=== PATIENT | male | born 1955 | race African-American/Black ===

== ENCOUNTER 2020-10-22 21:53 | Inpatient (IN) ==
[2020-10-23 01:27] LABS: Basophils % 0.3 % (0.0-0.8); Eosinophils # 0.3 10*3/uL (0.0-0.87); Eosinophils % 2.3 % (0.00-10.9); Hematocrit 36.8 VOL% (42.0-52.0); Hemoglobin 11.7 GM/DL (14.0-18.0); Immature Granulocytes % 0.3 %; Immature Granulocytes Absolute 0.04 #; Lymphocytes # 2.2 10*3/uL (1.4-4.0); Lymphocytes % 17.4 % (21.2-54.2); Mean Corpuscular HGB Conc 31.8 GM/DL (32-36); Mean Corpuscular Volume 81.6 FL (87-102); Mean Platelet Volume 11.3 FL (9.6-12.0); Monocytes % 9.4 % (1.7-12.7); Neutrophils % 70.3 % (38.7-73.9); Platelet Count 299 T/CUMM (130-400); Red Blood Count 4.51 MC/CUMM (3.8-5.5); Red Cell Distribution Width 13.7 % (9.3-17.3); White Blood Count 12.4 T/CUMM (4-12)
[2020-10-23 02:01] LABS: Alanine Aminotransferase 20 U/L (16-61); Albumin 2.2 G/DL (3.4-5.0); Alkaline Phosphatase 128 U/L (45-117); Aspartate Amino Transferase 22 U/L (0-37); Bilirubin,Total < 0.39 MG/DL (0.2-1.0); Blood Urea Nitrogen 30 MG/DL (7-18); Calcium 8.1 MG/DL (8.5-10.1); Carbon Dioxide 27 MMOL/L (21-32); Estimated Glom Filtration Rate 47 ML/MIN; Glucose 206 MG/DL (74-106); Osmolality,Calculated 281.1 MOS/KG (273-304); Potassium 4.2 MMOL/L (3.5-5.1); Sodium 135 MMOL/L (136-145); Total Protein 6.6 G/DL (6.4-8.2)
[2020-10-23] MEDS ORDERED: GLUCAGON 1 MG VIAL IM PRN ×2 (03:26→13:18)
[2020-10-23] MEDS ORDERED: ONDANSETRON 4 MG/2 ML VIAL IV PRN (03:26)
[2020-10-23] MEDS ORDERED: DEXTROSE 50% 25 GM/50 ML VIAL IV PRN ×2 (03:26→13:18)
[2020-10-23] MEDS: PIPERACILLIN/TAZOBACTAM 3,375 MG in SODIUM CHLORIDE 0.9% 100 ML IV SCH ×3 (04:21→20:47)
[2020-10-23] MEDS: SODIUM CHLORIDE 0.9% 1,000 ML IV SCH ×2 (04:21→18:01)
[2020-10-23] MEDS: VANCOMYCIN INJ 1,250 MG in SODIUM CHLORIDE 0.9% 250 ML IV SCH ×2 (05:13→23:06)
[2020-10-23 07:59] LABS: Risk Ratio 3.05; VLDL Cholesterol 21.6 MG/DL
[2020-10-23] MEDS: amLODIPine 10 MG TABLET PO SCH ×2 (08:21→09:34)
[2020-10-23] MEDS: INSULIN REGULAR 100 UNIT/ML SUBCUT SCH ×4 (08:28→20:47)
[2020-10-23] MEDS: PANTOPRAZOLE 40 MG TABLET PO SCH (08:57)
[2020-10-23] MEDS ORDERED: LABETALOL 20 MG/4 ML SYRINGE IV PRN (09:19)
[2020-10-23] MEDS ORDERED: LABETALOL 100 MG TABLET PO PRN (09:24)
[2020-10-23] MEDS: hydrALAZINE 20 MG/1 ML VIAL IV PRN ×2 (09:37→16:19)
[2020-10-23] MEDS ORDERED: BUPIVACAINE MPF 0.25% 30 ML VIAL ONE (09:42)
[2020-10-23] MEDS ORDERED: LIDOCAINE 1% 20 ML VIAL ONE (09:42)
[2020-10-23] MEDS ORDERED: SEVOFLURANE 1 UNIT/15 MINUTE INH ONE (10:55)
[2020-10-23] MEDS ORDERED: LIDOCAINE 2% 5 ML VIAL ONE (10:55)
[2020-10-23] MEDS ORDERED: propofoL 200 MG/20 ML VIAL IV ONE (10:55)
[2020-10-23] MEDS ORDERED: fentaNYL 100 MCG/2 ML VIAL ONE (11:00)
[2020-10-23] MEDS ORDERED: ONDANSETRON 4 MG/2 ML VIAL ONE (11:15)
[2020-10-23] MEDS ORDERED: SODIUM CHLORIDE 0.9% 1,000 ML IV ONE (11:18)
[2020-10-23] MEDS ORDERED: PHENYLEPHRINE 1 MG/10 ML SYRINGE IV ONE (11:19)
[2020-10-23] MEDS: ENOXAPARIN 40 MG/0.4 ML SYRINGE SUBCUT SCH (15:57)
[2020-10-23] MEDS: cloNIDine 0.1 MG TABLET PO SCH (20:47)
[2020-10-23] MEDS: ATORVASTATIN 10 MG TABLET PO SCH (20:48)
[2020-10-24] MEDS: PIPERACILLIN/TAZOBACTAM 3,375 MG in SODIUM CHLORIDE 0.9% 100 ML IV SCH ×3 (03:33→22:07)
[2020-10-24 06:02] LABS: Basophils % 0.4 % (0.0-0.8); Eosinophils # 0.1 10*3/uL (0.0-0.87); Eosinophils % 1.1 % (0.00-10.9); Hematocrit 34.4 VOL% (42.0-52.0); Hemoglobin 11.2 GM/DL (14.0-18.0); Immature Granulocytes % 0.3 %; Immature Granulocytes Absolute 0.03 #; Mean Corpuscular HGB Conc 32.6 GM/DL (32-36); Mean Corpuscular Volume 79.8 FL (87-102); Mean Platelet Volume 11.4 FL (9.6-12.0); Neutrophils % 81.2 % (38.7-73.9); Platelet Count 282 T/CUMM (130-400); Red Blood Count 4.31 MC/CUMM (3.8-5.5); Red Cell Distribution Width 13.7 % (9.3-17.3); White Blood Count 11.1 T/CUMM (4-12)
[2020-10-24 06:23] LABS: Albumin 1.6 G/DL (3.4-5.0); Bilirubin,Total 0.4 MG/DL (0.2-1.0); Calcium 7.9 MG/DL (8.5-10.1); Osmolality,Calculated 286.1 MOS/KG (273-304); Potassium 3.5 MMOL/L (3.5-5.1); Total Protein 6.4 G/DL (6.4-8.2)
[2020-10-24] MEDS: INSULIN REGULAR 100 UNIT/ML SUBCUT SCH ×4 (07:26→22:09)
[2020-10-24] MEDS: POTASSIUM CHLORIDE 20 MEQ TABLET PO SCH (08:49)
[2020-10-24] MEDS: PANTOPRAZOLE 40 MG TABLET PO SCH (08:49)
[2020-10-24] MEDS: amLODIPine 10 MG TABLET PO SCH (08:49)
[2020-10-24] MEDS: SODIUM HYPOCHLORITE 0.25% IRRIG 473 ML BOTTLE TOP SCH (14:19)
[2020-10-24] MEDS: ENOXAPARIN 40 MG/0.4 ML SYRINGE SUBCUT SCH (17:19)
[2020-10-24] MEDS: VANCOMYCIN INJ 1,250 MG in SODIUM CHLORIDE 0.9% 250 ML IV SCH (19:15)
[2020-10-24] MEDS: ATORVASTATIN 10 MG TABLET PO SCH (22:11)
[2020-10-24] MEDS: cloNIDine 0.1 MG TABLET PO SCH (22:11)
[2020-10-24] MEDS: ACETAMINOPHEN 325 MG TABLET PO PRN (22:11)
[2020-10-25] MEDS: PIPERACILLIN/TAZOBACTAM 3,375 MG in SODIUM CHLORIDE 0.9% 100 ML IV SCH ×3 (04:18→21:41)
[2020-10-25 06:19] LABS: Amorphous Crystals,Urine Few /HPF (Few); Bilirubin,Urine Negative (Negative); Blood, Urine Small mg/dL (Negative); Glucose,Urine (UA) 150 mg/dL (Negative); Hyaline Casts,Urine 1 /LPF (0-3); Ketones,Urine Negative (Negative); Mucus,Urine Occasional /LPF (Occasional); Nitrite,Urine Negative (Negative); Protein,Urine >=500 MG/DL; RBC,Urine 4 /HPF (0-4); Squamous Epithelial Cell,Urine Occasional /HPF (0-10); Urine Appearance CLOUDY (Clear); Urine Color Yellow (Yellow); Urine Specific Gravity 1.019 (1.001-1.035); Urine Urobilinogen < 2.0 EU/DL (0.2-1.0)
[2020-10-25] MEDS: INSULIN REGULAR 100 UNIT/ML SUBCUT SCH ×4 (08:06→21:51)
[2020-10-25 09:25] LABS: Basophils # 0.1 10*3/uL (0.0-0.2); Basophils % 0.3 % (0.0-0.8); Eosinophils # 0.3 10*3/uL (0.0-0.87); Eosinophils % 2.1 % (0.00-10.9); Hematocrit 34.8 VOL% (42.0-52.0); Hemoglobin 11.5 GM/DL (14.0-18.0); Immature Granulocytes % 0.5 %; Immature Granulocytes Absolute 0.07 #; Lymphocytes # 1.3 10*3/uL (1.4-4.0); Lymphocytes % 9.1 % (21.2-54.2); Mean Corpuscular Volume 79.8 FL (87-102); Monocytes % 7.8 % (1.7-12.7); Neutrophils % 80.2 % (38.7-73.9); Platelet Count 334 T/CUMM (130-400); Red Blood Count 4.36 MC/CUMM (3.8-5.5); Red Cell Distribution Width 13.7 % (9.3-17.3); White Blood Count 14.6 T/CUMM (4-12)
[2020-10-25 09:55] LABS: Calcium 8.1 MG/DL (8.5-10.1); Osmolality,Calculated 281.7 MOS/KG (273-304); Potassium 3.5 MMOL/L (3.5-5.1)
[2020-10-25] MEDS: POTASSIUM CHLORIDE 20 MEQ TABLET PO SCH (09:58)
[2020-10-25] MEDS: amLODIPine 10 MG TABLET PO SCH (09:58)
[2020-10-25] MEDS: PANTOPRAZOLE 40 MG TABLET PO SCH (09:58)
[2020-10-25] MEDS: SODIUM HYPOCHLORITE 0.25% IRRIG 473 ML BOTTLE TOP SCH (13:10)
[2020-10-25] MEDS ORDERED: ENOXAPARIN 40 MG/0.4 ML SYRINGE SUBCUT ONE (13:48)
[2020-10-25] MEDS: lisinopriL 20 MG TABLET PO SCH (14:43)
[2020-10-25] MEDS: hydrALAZINE 20 MG/1 ML VIAL IV PRN (18:58)
[2020-10-25] MEDS ORDERED: ENOXAPARIN 80 MG/0.8 ML SYRINGE SUBCUT SCH (21:00)
[2020-10-25] MEDS: ATORVASTATIN 10 MG TABLET PO SCH (21:41)
[2020-10-25] MEDS: cloNIDine 0.1 MG TABLET PO SCH (21:41)
[2020-10-25] MEDS: SODIUM CHLORIDE 0.9% 1,000 ML IV SCH (23:47)
[2020-10-26 01:08] LABS: Basophils # 0.1 10*3/uL (0.0-0.2); Basophils % 0.4 % (0.0-0.8); Eosinophils # 0.2 10*3/uL (0.0-0.87); Eosinophils % 1.2 % (0.00-10.9); Hematocrit 32.6 VOL% (42.0-52.0); Hemoglobin 10.4 GM/DL (14.0-18.0); Immature Granulocytes % 0.8 %; Immature Granulocytes Absolute 0.11 #; Lymphocytes # 1.5 10*3/uL (1.4-4.0); Lymphocytes % 11.5 % (21.2-54.2); Mean Corpuscular HGB Conc 31.9 GM/DL (32-36); Mean Corpuscular Volume 80.7 FL (87-102); Mean Platelet Volume 10.4 FL (9.6-12.0); Monocytes % 8.3 % (1.7-12.7); Neutrophils % 77.8 % (38.7-73.9); Platelet Count 328 T/CUMM (130-400); Red Blood Count 4.04 MC/CUMM (3.8-5.5); Red Cell Distribution Width 13.8 % (9.3-17.3)
[2020-10-26 01:15] LABS: Calcium 7.8 MG/DL (8.5-10.1); Osmolality,Calculated 279.8 MOS/KG (273-304); Potassium 3.7 MMOL/L (3.5-5.1)
[2020-10-26] MEDS: VANCOMYCIN INJ 1,250 MG in SODIUM CHLORIDE 0.9% 250 ML IV SCH ×2 (03:10→21:09)
[2020-10-26] MEDS: SODIUM CHLORIDE 0.9% 1,000 ML IV SCH (04:50)
[2020-10-26] MEDS: PIPERACILLIN/TAZOBACTAM 3,375 MG in SODIUM CHLORIDE 0.9% 100 ML IV SCH ×3 (05:27→23:41)
[2020-10-26] MEDS: cloNIDine 0.1 MG TABLET PO SCH ×3 (09:20→21:10)
[2020-10-26] MEDS: PANTOPRAZOLE 40 MG TABLET PO SCH (09:20)
[2020-10-26] MEDS: POTASSIUM CHLORIDE 20 MEQ TABLET PO SCH (09:20)
[2020-10-26] MEDS: lisinopriL 20 MG TABLET PO SCH (09:20)
[2020-10-26] MEDS: amLODIPine 10 MG TABLET PO SCH (09:20)
[2020-10-26] MEDS ORDERED: FUROSEMIDE 40 MG/4 ML VIAL IV ONE (14:05)
[2020-10-26] MEDS: INSULIN REGULAR 100 UNIT/ML SUBCUT SCH ×3 (14:54→21:10)
[2020-10-26] MEDS: carvediloL 3.125 MG TABLET PO SCH ×2 (14:55→21:09)
[2020-10-26] MEDS: ENOXAPARIN 40 MG/0.4 ML SYRINGE SUBCUT SCH (14:55)
[2020-10-26] MEDS: ASPIRIN EC 81 MG TABLET PO SCH (14:55)
[2020-10-26] MEDS: SODIUM HYPOCHLORITE 0.25% IRRIG 473 ML BOTTLE TOP SCH (14:55)
[2020-10-26] MEDS: ATORVASTATIN 10 MG TABLET PO SCH (21:10)
[2020-10-27 05:17] LABS: Basophils % 0.4 % (0.0-0.8); Eosinophils # 0.4 10*3/uL (0.0-0.87); Hematocrit 32.6 VOL% (42.0-52.0); Hemoglobin 10.7 GM/DL (14.0-18.0); Immature Granulocytes % 0.5 %; Immature Granulocytes Absolute 0.06 #; Lymphocytes # 1.4 10*3/uL (1.4-4.0); Lymphocytes % 12.5 % (21.2-54.2); Mean Corpuscular HGB Conc 32.8 GM/DL (32-36); Mean Corpuscular Volume 79.7 FL (87-102); Mean Platelet Volume 10.8 FL (9.6-12.0); Monocytes % 8.2 % (1.7-12.7); Neutrophils % 74.4 % (38.7-73.9); Platelet Count 344 T/CUMM (130-400); Red Blood Count 4.09 MC/CUMM (3.8-5.5); Red Cell Distribution Width 13.8 % (9.3-17.3)
[2020-10-27 05:31] LABS: Calcium 8.5 MG/DL (8.5-10.1); Osmolality,Calculated 279.8 MOS/KG (273-304); Potassium 3.6 MMOL/L (3.5-5.1)
[2020-10-27] MEDS: PIPERACILLIN/TAZOBACTAM 3,375 MG in SODIUM CHLORIDE 0.9% 100 ML IV SCH (06:13)
[2020-10-27] MEDS: INSULIN REGULAR 100 UNIT/ML SUBCUT SCH ×4 (09:18→21:28)
[2020-10-27] MEDS: PANTOPRAZOLE 40 MG TABLET PO SCH (09:18)
[2020-10-27] MEDS: ENOXAPARIN 40 MG/0.4 ML SYRINGE SUBCUT SCH (09:18)
[2020-10-27] MEDS: lisinopriL 20 MG TABLET PO SCH (09:19)
[2020-10-27] MEDS: POTASSIUM CHLORIDE 20 MEQ TABLET PO SCH (09:19)
[2020-10-27] MEDS: cloNIDine 0.1 MG TABLET PO SCH ×2 (09:19→21:30)
[2020-10-27] MEDS: carvediloL 3.125 MG TABLET PO SCH ×2 (09:19→21:30)
[2020-10-27] MEDS: ASPIRIN EC 81 MG TABLET PO SCH (09:19)
[2020-10-27] MEDS: ACETAMINOPHEN 325 MG TABLET PO PRN (09:19)
[2020-10-27] MEDS: amLODIPine 10 MG TABLET PO SCH (09:20)
[2020-10-27] MEDS: SODIUM HYPOCHLORITE 0.25% IRRIG 473 ML BOTTLE TOP SCH (09:49)
[2020-10-27] MEDS ORDERED: AZITHROMYCIN INJ 250 MG in SODIUM CHLORIDE 0.9% 250 ML IV SCH (10:00)
[2020-10-27] MEDS: cefTRIAXone 1,000 MG in SODIUM CHLORIDE 0.9% 100 ML IV SCH (10:37)
[2020-10-27] MEDS: AZITHROMYCIN INJ 500 MG in SODIUM CHLORIDE 0.9% 250 ML IV SCH (11:18)
[2020-10-27] MEDS: FUROSEMIDE 20 MG/2 ML VIAL IV SCH (15:43)
[2020-10-27] MEDS: ATORVASTATIN 10 MG TABLET PO SCH (21:30)
[2020-10-28 05:33] LABS: Basophils % 0.4 % (0.0-0.8); Eosinophils # 0.4 10*3/uL (0.0-0.87); Hematocrit 31.1 VOL% (42.0-52.0); Hemoglobin 9.9 GM/DL (14.0-18.0); Immature Granulocytes % 0.7 %; Immature Granulocytes Absolute 0.07 #; Lymphocytes # 1.3 10*3/uL (1.4-4.0); Lymphocytes % 12.2 % (21.2-54.2); Mean Corpuscular HGB Conc 31.8 GM/DL (32-36); Mean Corpuscular Volume 80.8 FL (87-102); Mean Platelet Volume 10.9 FL (9.6-12.0); Monocytes % 9.8 % (1.7-12.7); Neutrophils % 72.9 % (38.7-73.9); Platelet Count 353 T/CUMM (130-400); Red Blood Count 3.85 MC/CUMM (3.8-5.5); Red Cell Distribution Width 13.8 % (9.3-17.3); White Blood Count 10.6 T/CUMM (4-12)
[2020-10-28 05:51] LABS: Calcium 8.2 MG/DL (8.5-10.1); Osmolality,Calculated 284.3 MOS/KG (273-304); Potassium 3.3 MMOL/L (3.5-5.1)
[2020-10-28] MEDS: INSULIN REGULAR 100 UNIT/ML SUBCUT SCH ×2 (07:30→11:09)
[2020-10-28] MEDS: POTASSIUM CHLORIDE 20 MEQ TABLET PO SCH ×2 (08:29→09:53)
[2020-10-28] MEDS: cloNIDine 0.1 MG TABLET PO SCH ×2 (08:29→09:53)
[2020-10-28] MEDS: PANTOPRAZOLE 40 MG TABLET PO SCH ×2 (08:29→09:53)
[2020-10-28] MEDS: lisinopriL 20 MG TABLET PO SCH ×2 (08:30→09:53)
[2020-10-28] MEDS: carvediloL 3.125 MG TABLET PO SCH ×2 (08:30→09:53)
[2020-10-28] MEDS: FUROSEMIDE 20 MG/2 ML VIAL IV SCH ×2 (08:30→09:52)
[2020-10-28] MEDS: amLODIPine 10 MG TABLET PO SCH ×2 (08:30→09:53)
[2020-10-28] MEDS: ASPIRIN EC 81 MG TABLET PO SCH ×2 (08:30→09:52)
[2020-10-28] MEDS: ENOXAPARIN 40 MG/0.4 ML SYRINGE SUBCUT SCH ×2 (08:31→09:53)
[2020-10-28] MEDS: SODIUM HYPOCHLORITE 0.25% IRRIG 473 ML BOTTLE TOP SCH (08:31)
[2020-10-28] MEDS ORDERED: COLLAGENASE OINT 30 GM TUBE TOP SCH (09:00)
[2020-10-28] MEDS ORDERED: SULFAMETHOX/TRIMETHOPRIM 800-160 MG TABLET PO SCH (09:00)
[2020-10-28] MEDS: cefTRIAXone 1,000 MG in SODIUM CHLORIDE 0.9% 100 ML IV SCH (10:15)
[2020-10-28] MEDS: AZITHROMYCIN INJ 500 MG in SODIUM CHLORIDE 0.9% 250 ML IV SCH (10:16)
[2020-10-28 13:34] VITALS: BP 184/80
== END 2020-10-28 14:13 | disposition home health service (06) | DRG 981 ==
LOC: N.ED 21:53 → N.EDINP 21:53 → OBSVTOIN 10-23 03:26 → SUATTDRO 10-23 03:26 → N.EDINP 10-23 09:46 → N.3E 10-23 09:58
PROVIDERS: ADMIT Internal Medicine; ATTEND Internal Medicine

== ENCOUNTER 2020-11-06 10:44 | Inpatient (IN) ==
[~2020-11-06 10:44] MED LIST: ASPIRIN 325 MG TABLET PO ONE; DIAZEPAM 5 MG TABLET PO ONE; MAGNESIUM SULF RIDER 2 GM/50 ML PREMIX IV PRN; POTASSIUM CHLORIDE RIDER 10 MEQ/100 ML PREMIX IV PRN; diphenhydrAMINE CAP 50 MG CAPSULE PO ONE
[2020-11-06 11:43] LABS: Basophils # 0.1 10*3/uL (0.0-0.2); Basophils % 0.7 % (0.0-0.8); Eosinophils # 0.4 10*3/uL (0.0-0.87); Eosinophils % 3.3 % (0.00-10.9); Hemoglobin 11.2 GM/DL (14.0-18.0); Immature Granulocytes % 0.9 %; Lymphocytes # 1.5 10*3/uL (1.4-4.0); Mean Corpuscular Volume 80.8 FL (87-102); Mean Platelet Volume 10.1 FL (9.6-12.0); Monocytes % 7.2 % (1.7-12.7); Neutrophils % 74.9 % (38.7-73.9); Platelet Count 514 T/CUMM (130-400); Red Blood Count 4.33 MC/CUMM (3.8-5.5); Red Cell Distribution Width 14.6 % (9.3-17.3); White Blood Count 11.7 T/CUMM (4-12)
[2020-11-06 11:51] LABS: PT Patient Result 11.4 SECS (10.5-12.0)
[2020-11-06 12:05] LABS: Albumin 2.4 G/DL (3.4-5.0); Bilirubin,Total 0.4 MG/DL (0.2-1.0); Calcium 9.4 MG/DL (8.5-10.1); Osmolality,Calculated 280.7 MOS/KG (273-304); Potassium 4.4 MMOL/L (3.5-5.1); Total Protein 8.3 G/DL (6.4-8.2)
[2020-11-06] MEDS ORDERED: ASPIRIN 325 MG TABLET ONE (12:05)
[2020-11-06] MEDS ORDERED: DIAZEPAM 5 MG TABLET ONE (12:05)
[2020-11-06] MEDS ORDERED: diphenhydrAMINE CAP 50 MG CAPSULE ONE (12:05)
[2020-11-06] MEDS: SODIUM CHLORIDE 0.9% 1,000 ML IV SCH ×2 (12:10→23:05)
[2020-11-06] MEDS ORDERED: LIDOCAINE 1% 20 ML VIAL ONE (12:24)
[2020-11-06] MEDS ORDERED: MIDAZOLAM 2 MG/2 ML VIAL ONE (12:43)
[2020-11-06] MEDS ORDERED: HYDROmorphone 2 MG/1 ML VIAL ONE (12:43)
[2020-11-06] MEDS ORDERED: HEPARIN 5,000 UNIT/1 ML VIAL ONE ×3 (13:08→15:32)
[2020-11-06] MEDS ORDERED: NITROGLYCERIN DRIP 50 MG/250 ML BOTTLE IV ONE (13:26)
[2020-11-06] MEDS ORDERED: VERAPAMIL 5 MG/2 ML VIAL ONE (13:26)
[2020-11-06] MEDS ORDERED: TIROFIBAN 5,000 MCG/100 ML PREMIX IV ONE (14:31)
[2020-11-06] MEDS ORDERED: ALTEPLASE 2 MG VIAL ONE ×2 (15:25→15:43)
[2020-11-06] MEDS ORDERED: LORazepam 2 MG/1 ML VIAL IV PRN (16:13)
[2020-11-06] MEDS ORDERED: ONDANSETRON 4 MG/2 ML VIAL IV PRN (16:13)
[2020-11-06] MEDS ORDERED: ALTEPLASE IV SCH (16:30)
[2020-11-06] MEDS ORDERED: SODIUM CHLORIDE 0.9% IV SCH (16:30)
[2020-11-06] MEDS ORDERED: HEPARIN DRIP 25,000 UNITS/500 ML PREMIX IV SCH (16:30)
[2020-11-06] MEDS: NITROGLYCERIN DRIP 50 MG/250 ML BOTTLE IV PRN (16:30)
[2020-11-06] MEDS ORDERED: LABETALOL 200 MG TABLET PO ONE (17:30)
[2020-11-06 18:33] LABS: INR 1.1; PT Patient Result 11.8 SECS (10.5-12.0); Partial Thromboplastin Time 31.3 SECS (23.9-33.8)
[2020-11-06] MEDS: LABETALOL 100 MG TABLET PO SCH (21:07)
[2020-11-06] MEDS: ATORVASTATIN 10 MG TABLET PO SCH (21:07)
[2020-11-06] MEDS: SULFAMETHOX/TRIMETHOPRIM 800-160 MG TABLET PO SCH (21:07)
[2020-11-07 03:45] LABS: Basophils # 0.1 10*3/uL (0.0-0.2); Basophils % 0.6 % (0.0-0.8); Eosinophils # 0.5 10*3/uL (0.0-0.87); Eosinophils % 5.2 % (0.00-10.9); Hematocrit 29.3 VOL% (42.0-52.0); Hemoglobin 9.4 GM/DL (14.0-18.0); Immature Granulocytes % 0.3 %; Immature Granulocytes Absolute 0.03 #; Lymphocytes # 1.4 10*3/uL (1.4-4.0); Lymphocytes % 16.3 % (21.2-54.2); Mean Corpuscular HGB Conc 32.1 GM/DL (32-36); Mean Corpuscular Volume 80.7 FL (87-102); Mean Platelet Volume 9.9 FL (9.6-12.0); Monocytes % 8.5 % (1.7-12.7); Neutrophils % 69.1 % (38.7-73.9); Platelet Count 453 T/CUMM (130-400); Red Blood Count 3.63 MC/CUMM (3.8-5.5); Red Cell Distribution Width 14.5 % (9.3-17.3); White Blood Count 8.7 T/CUMM (4-12)
[2020-11-07 03:55] LABS: Calcium 8.5 MG/DL (8.5-10.1); Osmolality,Calculated 280.4 MOS/KG (273-304); Potassium 4.5 MMOL/L (3.5-5.1)
[2020-11-07 04:31] LABS: INR 1.1; PT Patient Result 11.9 SECS (10.5-12.0)
[2020-11-07 04:40] LABS: Partial Thromboplastin Time 44.4 SECS (23.9-33.8)
[2020-11-07] MEDS: SODIUM CHLORIDE 0.9% 1,000 ML IV SCH ×3 (05:51→19:07)
[2020-11-07] MEDS: NITROGLYCERIN DRIP 50 MG/250 ML BOTTLE IV PRN (06:16)
[2020-11-07] MEDS ORDERED: PHENOL 1.4% THROAT SPRAY 177 ML BOTTLE PO PRN (07:59)
[2020-11-07] MEDS ORDERED: DEXTROSE 50% 25 GM/50 ML VIAL IV ONE (08:12)
[2020-11-07] MEDS: DEXTROSE 50% 25 GM/50 ML VIAL IV PRN ×2 (08:15→18:08)
[2020-11-07] MEDS: LABETALOL 100 MG TABLET PO SCH ×2 (08:28→20:37)
[2020-11-07] MEDS: SULFAMETHOX/TRIMETHOPRIM 800-160 MG TABLET PO SCH ×2 (08:28→20:39)
[2020-11-07] MEDS: amLODIPine 5 MG TABLET PO SCH (08:29)
[2020-11-07] MEDS: INSULIN GLARGINE 100 UNIT/ML SUBCUT SCH (08:46)
[2020-11-07] MEDS ORDERED: MIDAZOLAM 2 MG/2 ML VIAL ONE (10:19)
[2020-11-07] MEDS ORDERED: HYDROmorphone 2 MG/1 ML VIAL ONE (10:19)
[2020-11-07] MEDS ORDERED: HEPARIN 5,000 UNIT/1 ML VIAL ONE (10:35)
[2020-11-07] MEDS ORDERED: TICAGRELOR 90 MG TABLET ONE (11:45)
[2020-11-07] MEDS ORDERED: ASPIRIN 325 MG TABLET ONE (11:45)
[2020-11-07] MEDS ORDERED: NITROGLYCERIN SL 0.4 MG TABLET SL PRN (11:46)
[2020-11-07] MEDS ORDERED: ZALEPLON 5 MG CAPSULE PO PRN (11:46)
[2020-11-07] MEDS ORDERED: RIVAROXABAN 2.5 MG TABLET PO ONE (12:06)
[2020-11-07] MEDS ORDERED: hydrALAZINE 20 MG/1 ML VIAL IV ONE (12:25)
[2020-11-07] MEDS: ISOSORBIDE DINITRATE 20 MG TABLET PO SCH ×2 (14:55→20:39)
[2020-11-07] MEDS: hydrALAZINE 20 MG/1 ML VIAL IV PRN ×2 (16:27→19:28)
[2020-11-07] MEDS: ATORVASTATIN 10 MG TABLET PO SCH (20:38)
[2020-11-07] MEDS: RIVAROXABAN 2.5 MG TABLET PO SCH (20:38)
[2020-11-07] MEDS: TICAGRELOR 90 MG TABLET PO SCH (20:38)
[2020-11-08 03:48] LABS: Basophils # 0.1 10*3/uL (0.0-0.2); Basophils % 0.6 % (0.0-0.8); Eosinophils # 0.4 10*3/uL (0.0-0.87); Eosinophils % 3.8 % (0.00-10.9); Hematocrit 29.9 VOL% (42.0-52.0); Hemoglobin 9.6 GM/DL (14.0-18.0); Immature Granulocytes % 0.3 %; Immature Granulocytes Absolute 0.03 #; Lymphocytes # 1.1 10*3/uL (1.4-4.0); Lymphocytes % 10.3 % (21.2-54.2); Mean Corpuscular HGB Conc 32.1 GM/DL (32-36); Mean Corpuscular Volume 80.8 FL (87-102); Mean Platelet Volume 9.8 FL (9.6-12.0); Monocytes % 7.2 % (1.7-12.7); Neutrophils % 77.8 % (38.7-73.9); Platelet Count 461 T/CUMM (130-400); Red Cell Distribution Width 14.4 % (9.3-17.3); White Blood Count 10.4 T/CUMM (4-12)
[2020-11-08 04:02] LABS: Calcium 8.5 MG/DL (8.5-10.1); Osmolality,Calculated 279.3 MOS/KG (273-304); Potassium 4.2 MMOL/L (3.5-5.1)
[2020-11-08 04:05] LABS: Partial Thromboplastin Time 31.6 SECS (23.9-33.8)
[2020-11-08] MEDS: hydrALAZINE 20 MG/1 ML VIAL IV PRN (04:27)
[2020-11-08] MEDS: DEXTROSE 50% 25 GM/50 ML VIAL IV PRN (04:33)
[2020-11-08] MEDS: SODIUM CHLORIDE 0.9% 1,000 ML IV SCH ×2 (05:13→16:03)
[2020-11-08] MEDS: INSULIN GLARGINE 100 UNIT/ML SUBCUT SCH (09:29)
[2020-11-08] MEDS: RIVAROXABAN 2.5 MG TABLET PO SCH ×2 (09:29→21:16)
[2020-11-08] MEDS: LABETALOL 100 MG TABLET PO SCH ×2 (09:30→21:15)
[2020-11-08] MEDS: ASPIRIN EC 81 MG TABLET PO SCH (09:30)
[2020-11-08] MEDS: ISOSORBIDE DINITRATE 20 MG TABLET PO SCH ×3 (09:30→21:16)
[2020-11-08] MEDS: TICAGRELOR 90 MG TABLET PO SCH ×2 (09:30→21:16)
[2020-11-08] MEDS: amLODIPine 5 MG TABLET PO SCH (09:30)
[2020-11-08] MEDS: SULFAMETHOX/TRIMETHOPRIM 800-160 MG TABLET PO SCH ×2 (09:30→21:16)
[2020-11-08 16:10] LABS: Partial Thromboplastin Time 32.5 SECS (23.9-33.8)
[2020-11-08] MEDS: ATORVASTATIN 10 MG TABLET PO SCH (21:16)
[2020-11-09] MEDS: SODIUM CHLORIDE 0.9% 1,000 ML IV SCH ×3 (01:57→22:15)
[2020-11-09 05:44] LABS: Basophils % 0.2 % (0.0-0.8); Eosinophils # 0.3 10*3/uL (0.0-0.87); Eosinophils % 3.3 % (0.00-10.9); Hematocrit 24.3 VOL% (42.0-52.0); Hemoglobin 7.9 GM/DL (14.0-18.0); Immature Granulocytes % 0.4 %; Immature Granulocytes Absolute 0.03 #; Lymphocytes # 1.2 10*3/uL (1.4-4.0); Lymphocytes % 14.6 % (21.2-54.2); Mean Corpuscular HGB Conc 32.5 GM/DL (32-36); Mean Platelet Volume 10.2 FL (9.6-12.0); Monocytes % 8.5 % (1.7-12.7); Platelet Count 388 T/CUMM (130-400); Red Cell Distribution Width 14.6 % (9.3-17.3); White Blood Count 8.2 T/CUMM (4-12)
[2020-11-09 06:08] LABS: Calcium 8.2 MG/DL (8.5-10.1); Osmolality,Calculated 284.4 MOS/KG (273-304); Potassium 4.2 MMOL/L (3.5-5.1)
[2020-11-09] MEDS: ASPIRIN EC 81 MG TABLET PO SCH (08:23)
[2020-11-09] MEDS: amLODIPine 5 MG TABLET PO SCH (08:23)
[2020-11-09] MEDS: TICAGRELOR 90 MG TABLET PO SCH ×2 (08:24→21:41)
[2020-11-09] MEDS: RIVAROXABAN 2.5 MG TABLET PO SCH ×2 (08:24→21:41)
[2020-11-09] MEDS: SULFAMETHOX/TRIMETHOPRIM 800-160 MG TABLET PO SCH ×2 (08:24→21:41)
[2020-11-09] MEDS: ISOSORBIDE DINITRATE 20 MG TABLET PO SCH ×3 (08:24→21:41)
[2020-11-09] MEDS: LABETALOL 100 MG TABLET PO SCH ×2 (08:25→21:43)
[2020-11-09] MEDS: INSULIN GLARGINE 100 UNIT/ML SUBCUT SCH (08:28)
[2020-11-09] MEDS ORDERED: SODIUM CHLORIDE 0.9% 1,000 ML IV PRN (10:28)
[2020-11-09] MEDS ORDERED: FUROSEMIDE 40 MG/4 ML VIAL IV PRN (10:29)
[2020-11-09] MEDS: ATORVASTATIN 10 MG TABLET PO SCH (21:41)
[2020-11-10 06:12] LABS: Basophils % 0.2 % (0.0-0.8); Eosinophils # 0.4 10*3/uL (0.0-0.87); Eosinophils % 5.1 % (0.00-10.9); Hematocrit 27.7 VOL% (42.0-52.0); Immature Granulocytes % 0.2 %; Immature Granulocytes Absolute 0.02 #; Lymphocytes # 1.3 10*3/uL (1.4-4.0); Lymphocytes % 16.1 % (21.2-54.2); Mean Corpuscular HGB Conc 32.5 GM/DL (32-36); Mean Corpuscular Volume 81.2 FL (87-102); Mean Platelet Volume 10.3 FL (9.6-12.0); Monocytes % 8.3 % (1.7-12.7); Neutrophils % 70.1 % (38.7-73.9); Platelet Count 375 T/CUMM (130-400); Red Blood Count 3.41 MC/CUMM (3.8-5.5); Red Cell Distribution Width 14.7 % (9.3-17.3); White Blood Count 8.2 T/CUMM (4-12)
[2020-11-10] MEDS: SODIUM CHLORIDE 0.9% 1,000 ML IV SCH ×2 (06:33→15:37)
[2020-11-10 07:04] LABS: Calcium 8.3 MG/DL (8.5-10.1); Osmolality,Calculated 284.1 MOS/KG (273-304); Potassium 4.2 MMOL/L (3.5-5.1)
[2020-11-10] MEDS: SULFAMETHOX/TRIMETHOPRIM 800-160 MG TABLET PO SCH (10:06)
[2020-11-10] MEDS: ASPIRIN EC 81 MG TABLET PO SCH (10:06)
[2020-11-10] MEDS: RIVAROXABAN 2.5 MG TABLET PO SCH ×2 (10:07→22:11)
[2020-11-10] MEDS: TICAGRELOR 90 MG TABLET PO SCH (10:07)
[2020-11-10] MEDS: amLODIPine 5 MG TABLET PO SCH (10:07)
[2020-11-10] MEDS: ISOSORBIDE DINITRATE 20 MG TABLET PO SCH ×3 (10:07→22:11)
[2020-11-10] MEDS: LABETALOL 100 MG TABLET PO SCH (10:07)
[2020-11-10] MEDS: INSULIN GLARGINE 100 UNIT/ML SUBCUT SCH (10:08)
[2020-11-10] MEDS: INSULIN LISPRO 100 UNIT/ML SUBCUT SCH ×3 (12:15→22:55)
[2020-11-10] MEDS ORDERED: GLUCAGON 1 MG VIAL IM PRN (12:18)
[2020-11-10] MEDS ORDERED: INSULIN LISPRO 100 UNIT/ML ONE (13:19)
[2020-11-10] MEDS ORDERED: CLOPIDOGREL 75 MG TABLET PO ONE (16:43)
[2020-11-10] MEDS: SKIN HEALING OINT (AQUAPHOR) 50 GM TUBE TOP SCH (17:52)
[2020-11-10] MEDS ORDERED: LABETALOL 100 MG TABLET PO SCH (21:00)
[2020-11-10] MEDS ORDERED: cloNIDine 0.1 MG TABLET PO SCH (21:00)
[2020-11-10] MEDS: ATORVASTATIN 40 MG TABLET PO SCH (22:10)
[2020-11-11] MEDS: SODIUM CHLORIDE 0.9% 1,000 ML IV SCH ×2 (02:36→09:14)
[2020-11-11 06:48] LABS: Basophils % 0.4 % (0.0-0.8); Eosinophils # 0.2 10*3/uL (0.0-0.87); Eosinophils % 4.5 % (0.00-10.9); Hematocrit 47.5 VOL% (42.0-52.0); Hemoglobin 15.6 GM/DL (14.0-18.0); Immature Granulocytes % 0.2 %; Immature Granulocytes Absolute 0.01 #; Lymphocytes # 0.5 10*3/uL (1.4-4.0); Lymphocytes % 10.9 % (21.2-54.2); Mean Corpuscular HGB Conc 32.8 GM/DL (32-36); Monocytes % 6.6 % (1.7-12.7); Neutrophils % 77.4 % (38.7-73.9); Platelet Count 262 T/CUMM (130-400); Red Blood Count 5.94 MC/CUMM (3.8-5.5); Red Cell Distribution Width 14.9 % (9.3-17.3); White Blood Count 4.7 T/CUMM (4-12)
[2020-11-11 06:58] LABS: Calcium 8.3 MG/DL (8.5-10.1); Osmolality,Calculated 281.3 MOS/KG (273-304); Potassium 3.9 MMOL/L (3.5-5.1)
[2020-11-11] MEDS: INSULIN LISPRO 100 UNIT/ML SUBCUT SCH ×4 (07:30→21:20)
[2020-11-11] MEDS: SKIN HEALING OINT (AQUAPHOR) 50 GM TUBE TOP SCH (09:00)
[2020-11-11] MEDS: ISOSORBIDE DINITRATE 20 MG TABLET PO SCH ×3 (10:48→21:21)
[2020-11-11] MEDS: CLOPIDOGREL 75 MG TABLET PO SCH (10:48)
[2020-11-11] MEDS: ASPIRIN EC 81 MG TABLET PO SCH (10:48)
[2020-11-11] MEDS: amLODIPine 5 MG TABLET PO SCH (10:49)
[2020-11-11] MEDS: INSULIN GLARGINE 100 UNIT/ML SUBCUT SCH (10:50)
[2020-11-11] MEDS: GLIMEPIRIDE 4 MG TABLET PO SCH (16:40)
[2020-11-11] MEDS: ATORVASTATIN 40 MG TABLET PO SCH (21:21)
[2020-11-12] MEDS: DEXTROSE 50% 25 GM/50 ML VIAL IV PRN (00:59)
[2020-11-12] MEDS ORDERED: DEXAMETHASONE 4 MG/1 ML VIAL ONE (06:38)
[2020-11-12] MEDS ORDERED: DEXMEDETOMIDINE 200 MCG/2 ML VIAL ONE (06:38)
[2020-11-12] MEDS ORDERED: ONDANSETRON 4 MG/2 ML VIAL ONE (06:38)
[2020-11-12] MEDS ORDERED: propofoL 200 MG/20 ML VIAL IV ONE (06:38)
[2020-11-12] MEDS ORDERED: MIDAZOLAM 2 MG/2 ML VIAL ONE (06:38)
[2020-11-12] MEDS ORDERED: fentaNYL 100 MCG/2 ML VIAL ONE (06:38)
[2020-11-12] MEDS ORDERED: LIDOCAINE 2% 5 ML VIAL ONE (06:38)
[2020-11-12] MEDS ORDERED: LACTATED RINGERS 1,000 ML IV SCH (07:00)
[2020-11-12] MEDS ORDERED: DEXTROSE 50% 25 GM/50 ML VIAL IV ONE (07:07)
[2020-11-12] MEDS ORDERED: KETAMINE 500 MG/10 ML VIAL ONE (07:39)
[2020-11-12] MEDS ORDERED: SODIUM CHLORIDE 0.9% 100 ML IV ONE (07:42)
[2020-11-12] MEDS ORDERED: GLYCOPYRROLATE 0.4 MG/2 ML VIAL ONE (07:49)
[2020-11-12] MEDS ORDERED: ETOMIDATE 40 MG/20 ML VIAL IV ONE (07:50)
[2020-11-12] MEDS: INSULIN LISPRO 100 UNIT/ML SUBCUT SCH ×3 (10:01→17:28)
[2020-11-12] MEDS: GLIMEPIRIDE 4 MG TABLET PO SCH (10:02)
[2020-11-12] MEDS: ASPIRIN EC 81 MG TABLET PO SCH (10:02)
[2020-11-12] MEDS: INSULIN GLARGINE 100 UNIT/ML SUBCUT SCH (10:03)
[2020-11-12] MEDS: ISOSORBIDE DINITRATE 20 MG TABLET PO SCH ×2 (10:03→15:47)
[2020-11-12] MEDS: CLOPIDOGREL 75 MG TABLET PO SCH (10:03)
[2020-11-12] MEDS: SKIN HEALING OINT (AQUAPHOR) 50 GM TUBE TOP SCH (13:23)
[2020-11-12 13:38] LABS: Calcium 8.7 MG/DL (8.5-10.1); Osmolality,Calculated 276.8 MOS/KG (273-304); Potassium 4.5 MMOL/L (3.5-5.1)
[2020-11-12 16:39] VITALS: BP 175/76
[2020-11-13] MEDS ORDERED: GLIMEPIRIDE 2 MG TABLET PO SCH (08:00)
== END 2020-11-12 17:50 | disposition home or self-care (01) | DRG 271 ==
LOC: N.CL 10:44 → N.CC 16:13 → N.TELEN 11-08 13:58
PROVIDERS: ADMIT Internal Medicine Cardiovascular Disease; ATTEND Internal Medicine Cardiovascular Disease

== ENCOUNTER 2022-05-31 11:14 | Observation (INO) ==
[2022-05-31] MEDS ORDERED: ASPIRIN 325 MG TABLET PO ONE (11:19)
[2022-05-31] MEDS ORDERED: DIAZEPAM 5 MG TABLET PO ONE (11:19)
[2022-05-31] MEDS ORDERED: MAGNESIUM SULF RIDER 2 GM/50 ML PREMIX IV PRN (11:19)
[2022-05-31] MEDS ORDERED: diphenhydrAMINE CAP 50 MG CAPSULE PO ONE (11:19)
[2022-05-31] MEDS ORDERED: POTASSIUM CHLORIDE RIDER 10 MEQ/100 ML PREMIX IV PRN (11:19)
[2022-05-31 11:56] LABS: Basophils % 0.3 % (0.0-0.8); Eosinophils # 0.1 10*3/uL (0.0-0.87); Eosinophils % 0.9 % (0.00-10.9); Hematocrit 37.8 VOL% (42.0-52.0); Immature Granulocytes % 0.4 %; Immature Granulocytes Absolute 0.06 #; Lymphocytes # 1.4 10*3/uL (1.4-4.0); Lymphocytes % 9.4 % (21.2-54.2); Mean Corpuscular HGB Conc 31.7 GM/DL (32-36); Mean Corpuscular Volume 81.8 FL (87-102); Mean Platelet Volume 11.1 FL (9.6-12.0); Monocytes # 0.8 10*3/uL (0.11-0.8); Monocytes % 5.8 % (1.7-12.7); Neutrophils % 83.2 % (38.7-73.9); Platelet Count 279 T/CUMM (130-400); Red Blood Count 4.62 MC/CUMM (3.8-5.5); Red Cell Distribution Width 14.1 % (9.3-17.3); White Blood Count 14.5 T/CUMM (4-12)
[2022-05-31] MEDS ORDERED: diphenhydrAMINE CAP 50 MG CAPSULE ONE (12:01)
[2022-05-31] MEDS ORDERED: ASPIRIN 325 MG TABLET ONE (12:01)
[2022-05-31] MEDS ORDERED: DIAZEPAM 5 MG TABLET ONE (12:01)
[2022-05-31] MEDS: SODIUM CHLORIDE 0.9% 1,000 ML IV SCH (12:03)
[2022-05-31 12:07] LABS: PT Patient Result 10.9 SECS (10.1-12.1)
[2022-05-31 12:14] LABS: Alanine Aminotransferase 18 U/L (16-61); Albumin 2.5 G/DL (3.4-5.0); Alkaline Phosphatase 163 U/L (45-117); Aspartate Amino Transferase 19 U/L (0-37); Bilirubin,Total < 0.39 MG/DL (0.20-1.00); Blood Urea Nitrogen 64 MG/DL (7-18); Calcium 8.6 MG/DL (8.5-10.1); Carbon Dioxide 22 MMOL/L (21-32); Chloride 106 MMOL/L (98-107); Glucose 203 MG/DL (74-106); Osmolality,Calculated 298.7 MOS/KG (273-304); Potassium 4.1 MMOL/L (3.5-5.1); Sodium 138 MMOL/L (136-145); Total Protein 8.4 G/DL (6.4-8.2)
[2022-05-31] MEDS ORDERED: MIDAZOLAM 2 MG/2 ML VIAL ONE (12:36)
[2022-05-31] MEDS ORDERED: HYDROmorphone 1 MG/1 ML SYRINGE ONE (12:36)
[2022-05-31] MEDS ORDERED: HEPARIN 5,000 UNIT/1 ML VIAL ONE ×2 (13:14→13:30)
[2022-05-31] MEDS ORDERED: TIROFIBAN 5,000 MCG/100 ML PREMIX IV ONE (13:58)
[2022-05-31] MEDS ORDERED: LABETALOL 20 MG/4 ML SYRINGE IV ONE (14:35)
[2022-05-31] MEDS ORDERED: CLOPIDOGREL 300 MG TABLET ONE (14:44)
[2022-05-31] MEDS ORDERED: GLUCAGON 1 MG VIAL IM PRN (14:51)
[2022-05-31] MEDS ORDERED: DEXTROSE 50% 25 GM/50 ML VIAL IV PRN (14:51)
[2022-06-01] MEDS: SODIUM CHLORIDE 0.9% 1,000 ML IV SCH ×3 (04:20→22:20)
[2022-06-01 05:56] LABS: Basophils # 0.1 10*3/uL (0.0-0.2); Basophils % 0.5 % (0.0-0.8); Eosinophils # 0.4 10*3/uL (0.0-0.87); Eosinophils % 3.1 % (0.00-10.9); Hemoglobin 11.5 GM/DL (14.0-18.0); Immature Granulocytes % 0.7 %; Immature Granulocytes Absolute 0.08 #; Lymphocytes # 0.8 10*3/uL (1.4-4.0); Lymphocytes % 6.5 % (21.2-54.2); Mean Corpuscular HGB Conc 31.1 GM/DL (32-36); Mean Corpuscular Volume 82.2 FL (87-102); Mean Platelet Volume 11.7 FL (9.6-12.0); Monocytes # 0.8 10*3/uL (0.11-0.8); Monocytes % 6.6 % (1.7-12.7); Neutrophils % 82.6 % (38.7-73.9); Platelet Count 239 T/CUMM (130-400); Red Cell Distribution Width 14.2 % (9.3-17.3); White Blood Count 12.2 T/CUMM (4-12)
[2022-06-01 06:34] LABS: Calcium 8.3 MG/DL (8.5-10.1); Osmolality,Calculated 294.4 MOS/KG (273-304); Potassium 4.1 MMOL/L (3.5-5.1)
[2022-06-01] MEDS ORDERED: HYDROmorphone 1 MG/1 ML SYRINGE IV PRN (11:20)
[2022-06-01] MEDS: CLOPIDOGREL 75 MG TABLET PO SCH (15:17)
[2022-06-01] MEDS: ASPIRIN EC 81 MG TABLET PO SCH (15:18)
[2022-06-01] MEDS: INSULIN LISPRO 100 UNIT/ML SUBCUT SCH ×3 (15:18→22:19)
[2022-06-01] MEDS: CHOLECALCIFEROL 1,000 UNIT TABLET PO SCH ×2 (15:18→22:19)
[2022-06-01] MEDS: ISOSORBIDE DINITRATE 20 MG TABLET PO SCH ×2 (15:19→22:19)
[2022-06-01] MEDS: PIPERACILLIN/TAZOBACTAM 3,375 MG in SODIUM CHLORIDE 0.9% 100 ML IV SCH (15:20)
[2022-06-01] MEDS: DOXAZOSIN 1 MG TABLET PO SCH (15:24)
[2022-06-01] MEDS: amLODIPine 10 MG TABLET PO SCH (15:24)
[2022-06-01] MEDS: HYDROmorphone 1 MG/1 ML SYRINGE IV PRN (22:16)
[2022-06-01] MEDS: ATORVASTATIN 40 MG TABLET PO SCH (22:19)
[2022-06-02] MEDS: PIPERACILLIN/TAZOBACTAM 3,375 MG in SODIUM CHLORIDE 0.9% 100 ML IV SCH ×2 (02:38→13:11)
[2022-06-02] MEDS: HYDROmorphone 1 MG/1 ML SYRINGE IV PRN ×4 (02:43→18:47)
[2022-06-02] MEDS ORDERED: FAMOTIDINE 20 MG TABLET PO ONE (06:00)
[2022-06-02 06:48] LABS: Basophils # 0.1 10*3/uL (0.0-0.2); Basophils % 0.5 % (0.0-0.8); Eosinophils # 0.8 10*3/uL (0.0-0.87); Eosinophils % 5.5 % (0.00-10.9); Hematocrit 33.3 VOL% (42.0-52.0); Hemoglobin 10.4 GM/DL (14.0-18.0); Immature Granulocytes % 0.6 %; Immature Granulocytes Absolute 0.09 #; Lymphocytes # 1.2 10*3/uL (1.4-4.0); Lymphocytes % 8.4 % (21.2-54.2); Mean Corpuscular HGB Conc 31.2 GM/DL (32-36); Mean Corpuscular Volume 83.7 FL (87-102); Mean Platelet Volume 11.4 FL (9.6-12.0); Monocytes # 1.1 10*3/uL (0.11-0.8); Monocytes % 7.5 % (1.7-12.7); Neutrophils % 77.5 % (38.7-73.9); Platelet Count 254 T/CUMM (130-400); Red Blood Count 3.98 MC/CUMM (3.8-5.5); Red Cell Distribution Width 14.2 % (9.3-17.3); White Blood Count 14.1 T/CUMM (4-12)
[2022-06-02 07:06] LABS: Alanine Aminotransferase 14 U/L (16-61); Albumin 2.2 G/DL (3.4-5.0); Alkaline Phosphatase 139 U/L (45-117); Aspartate Amino Transferase 17 U/L (0-37); Bilirubin,Total < 0.39 MG/DL (0.20-1.00); Blood Urea Nitrogen 65 MG/DL (7-18); Carbon Dioxide 19 MMOL/L (21-32); Chloride 113 MMOL/L (98-107); Osmolality,Calculated 298.1 MOS/KG (273-304); Potassium 4.3 MMOL/L (3.5-5.1); Sodium 142 MMOL/L (136-145); Total Protein 7.3 G/DL (6.4-8.2)
[2022-06-02 07:10] LABS: Glucose 48 MG/DL (74-106)
[2022-06-02] MEDS: DEXTROSE 10% 250 ML BAG IV PRN ×2 (07:28→15:17)
[2022-06-02] MEDS ORDERED: DEXTROSE 50% 25 GM/50 ML SYRINGE IV PRN (07:30)
[2022-06-02] MEDS: SODIUM CHLORIDE 0.9% 1,000 ML IV SCH ×3 (08:24→13:11)
[2022-06-02] MEDS: CLOPIDOGREL 75 MG TABLET PO SCH (08:25)
[2022-06-02] MEDS: CHOLECALCIFEROL 1,000 UNIT TABLET PO SCH ×2 (08:25→22:13)
[2022-06-02] MEDS: INSULIN LISPRO 100 UNIT/ML SUBCUT SCH ×4 (08:25→22:13)
[2022-06-02] MEDS: ASPIRIN EC 81 MG TABLET PO SCH (08:27)
[2022-06-02] MEDS: DOXAZOSIN 1 MG TABLET PO SCH ×2 (09:17→13:15)
[2022-06-02] MEDS: ISOSORBIDE DINITRATE 20 MG TABLET PO SCH ×3 (09:17→22:14)
[2022-06-02] MEDS: amLODIPine 10 MG TABLET PO SCH ×2 (09:18→13:15)
[2022-06-02] MEDS ORDERED: BUPIVACAINE MPF 0.25% 10 ML VIAL ONE (10:12)
[2022-06-02] MEDS ORDERED: LIDOCAINE 1% 5 ML VIAL ONE (10:12)
[2022-06-02] MEDS ORDERED: fentaNYL 100 MCG/2 ML VIAL ONE (10:17)
[2022-06-02] MEDS ORDERED: MIDAZOLAM 2 MG/2 ML VIAL ONE (10:29)
[2022-06-02] MEDS ORDERED: KETAMINE 500 MG/10 ML VIAL ONE (10:29)
[2022-06-02] MEDS ORDERED: DEXTROSE 50% 25 GM/50 ML SYRINGE IV ONE (10:36)
[2022-06-02] MEDS ORDERED: CLINDAMYCIN INJ 900 MG/50 ML PREMIX IV ONE (11:32)
[2022-06-02] MEDS ORDERED: propofoL 200 MG/20 ML VIAL IV ONE (11:52)
[2022-06-02] MEDS ORDERED: hydrALAZINE 20 MG/1 ML VIAL IV ONE (12:27)
[2022-06-02] MEDS ORDERED: hydrALAZINE 20 MG/1 ML VIAL ONE (12:28)
[2022-06-02] MEDS ORDERED: DEXTROSE 5% NACL 0.45% 1,000 ML IV SCH (15:30)
[2022-06-02] MEDS: ATORVASTATIN 40 MG TABLET PO SCH (22:13)
[2022-06-03] MEDS: HYDROmorphone 1 MG/1 ML SYRINGE IV PRN ×3 (00:31→11:28)
[2022-06-03] MEDS: PIPERACILLIN/TAZOBACTAM 3,375 MG in SODIUM CHLORIDE 0.9% 100 ML IV SCH ×2 (00:31→12:35)
[2022-06-03] MEDS: INSULIN LISPRO 100 UNIT/ML SUBCUT SCH ×2 (07:49→12:17)
[2022-06-03] MEDS: ISOSORBIDE DINITRATE 20 MG TABLET PO SCH (09:00)
[2022-06-03] MEDS ORDERED: METOPROLOL TARTRATE 25 MG TABLET PO SCH (09:00)
[2022-06-03] MEDS: ASPIRIN EC 81 MG TABLET PO SCH (09:00)
[2022-06-03] MEDS: DOXAZOSIN 1 MG TABLET PO SCH (09:00)
[2022-06-03] MEDS: amLODIPine 10 MG TABLET PO SCH (09:01)
[2022-06-03] MEDS: CLOPIDOGREL 75 MG TABLET PO SCH (09:01)
[2022-06-03] MEDS: CHOLECALCIFEROL 1,000 UNIT TABLET PO SCH (09:02)
[2022-06-03 09:44] LABS: Basophils # 0.1 10*3/uL (0.0-0.2); Basophils % 0.4 % (0.0-0.8); Eosinophils # 0.5 10*3/uL (0.0-0.87); Eosinophils % 3.5 % (0.00-10.9); Hematocrit 34.2 VOL% (42.0-52.0); Hemoglobin 10.8 GM/DL (14.0-18.0); Immature Granulocytes % 0.7 %; Lymphocytes % 7.6 % (21.2-54.2); Mean Corpuscular HGB Conc 31.6 GM/DL (32-36); Mean Corpuscular Volume 82.2 FL (87-102); Mean Platelet Volume 10.8 FL (9.6-12.0); Monocytes # 0.9 10*3/uL (0.11-0.8); Monocytes % 6.4 % (1.7-12.7); Neutrophils % 81.4 % (38.7-73.9); Platelet Count 269 T/CUMM (130-400); Red Blood Count 4.16 MC/CUMM (3.8-5.5); Red Cell Distribution Width 14.5 % (9.3-17.3); White Blood Count 13.4 T/CUMM (4-12)
[2022-06-03 10:00] LABS: Calcium 8.5 MG/DL (8.5-10.1); Osmolality,Calculated 304.3 MOS/KG (273-304); Potassium 4.4 MMOL/L (3.5-5.1)
[2022-06-03] MEDS ORDERED: SODIUM HYPOCHLORITE 0.25% IRRIG 473 ML BOTTLE TOP SCH (10:00)
[2022-06-03 11:51] VITALS: BP 167/81
== END 2022-06-03 15:34 | disposition home health service (06) ==
LOC: N.CL 11:14 → N.2W 11:14 → N.CL 11:17 → N.2W 15:05
PROVIDERS: ADMIT Internal Medicine Cardiovascular Disease; ATTEND Internal Medicine Cardiovascular Disease

== ENCOUNTER 2022-06-22 06:19 | Inpatient (IN) ==
[~2022-06-22 06:19] MED LIST changes: -ASPIRIN 325 MG TABLET PO ONE; +CLINDAMYCIN INJ 900 MG/50 ML PREMIX IV ONE; -DIAZEPAM 5 MG TABLET PO ONE; +LACTATED RINGERS 1,000 ML IV SCH; -MAGNESIUM SULF RIDER 2 GM/50 ML PREMIX IV PRN; -POTASSIUM CHLORIDE RIDER 10 MEQ/100 ML PREMIX IV PRN; -diphenhydrAMINE CAP 50 MG CAPSULE PO ONE
[2022-06-22] MEDS ORDERED: DEXTROSE 50% 25 GM/50 ML SYRINGE IV ONE ×2 (06:44→07:00)
[2022-06-22] MEDS ORDERED: FAMOTIDINE 20 MG/2 ML VIAL IV ONE (07:46)
[2022-06-22 07:48] LABS: Basophils % 0.1 % (0.0-0.8); Eosinophils % 0.1 % (0.00-10.9); Hemoglobin 8.5 GM/DL (14.0-18.0); Immature Granulocytes % 1.7 %; Immature Granulocytes Absolute 0.35 #; Lymphocytes # 0.5 10*3/uL (1.4-4.0); Lymphocytes % 2.4 % (21.2-54.2); Mean Corpuscular HGB Conc 31.5 GM/DL (32-36); Mean Corpuscular Volume 81.6 FL (87-102); Monocytes # 0.6 10*3/uL (0.11-0.8); Monocytes % 2.8 % (1.7-12.7); Neutrophils % 92.9 % (38.7-73.9); Platelet Count 425 T/CUMM (130-400); Red Blood Count 3.31 MC/CUMM (3.8-5.5); Red Cell Distribution Width 14.1 % (9.3-17.3); White Blood Count 21.14 T/CUMM (4-12)
[2022-06-22 07:59] LABS: Calcium 8.9 MG/DL (8.5-10.1); Osmolality,Calculated 288.1 MOS/KG (273-304); Potassium 4.8 MMOL/L (3.5-5.1)
[2022-06-22 08:35] LABS: Hypochromia Slight; Lymphocytes 2 % (20-55); Microcytosis Slight; Platelet Estimate Adequate; Total Cells Counted 100
[2022-06-22] MEDS ORDERED: MIDAZOLAM 2 MG/2 ML VIAL ONE (08:51)
[2022-06-22] MEDS ORDERED: propofoL 200 MG/20 ML VIAL IV ONE (08:51)
[2022-06-22] MEDS ORDERED: fentaNYL 100 MCG/2 ML VIAL ONE (08:51)
[2022-06-22] MEDS ORDERED: SEVOFLURANE 1 UNIT/15 MINUTE INH ONE ×5 (08:51→10:35)
[2022-06-22] MEDS ORDERED: LIDOCAINE 2% 5 ML VIAL ONE (08:51)
[2022-06-22] MEDS ORDERED: KETAMINE 500 MG/10 ML VIAL ONE (08:51)
[2022-06-22] MEDS ORDERED: ePHEDrine 50 MG/ML VIAL ONE (09:56)
[2022-06-22 10:43] LABS: Amorphous Crystals,Urine Moderate /HPF (Few); RBC,Urine 8 /HPF (0-4); Sperm,Urine Occasional /HPF (Negative); Urine Appearance Slightly Cloudy (Clear); Urine Color Yellow (Yellow)
[2022-06-22 10:44] LABS: Bilirubin,Urine Negative (Negative); Blood, Urine Trace mg/dL (Negative); Glucose,Urine (UA) Negative (Negative); Ketones,Urine Negative (Negative); Nitrite,Urine Negative (Negative); Protein,Urine >=300 mg/dL (Negative); Urine Urobilinogen 0.2 eU/dL (<2.0)
[2022-06-22] MEDS ORDERED: ROPIVACAINE 0.5% 30 ML VIAL ONE ×2 (10:46→10:59)
[2022-06-22] MEDS ORDERED: LIDOCAINE 1% 5 ML VIAL ONE (10:46)
[2022-06-22] MEDS ORDERED: ONDANSETRON 4 MG/2 ML VIAL IV PRN (10:48)
[2022-06-22] MEDS ORDERED: ACETAMINOPHEN 325 MG TABLET PO PRN (10:48)
[2022-06-22] MEDS ORDERED: NALOXONE 0.4 MG/ML VIAL IV PRN (10:48)
[2022-06-22] MEDS ORDERED: HYDROmorphone PCA 30 MG/30 ML SYRINGE IV SCH (11:00)
[2022-06-22] MEDS: DEXTROSE 5% LACTATED RINGERS 1,000 ML IV SCH (11:19)
[2022-06-22] MEDS: HYDROmorphone PCA 30 MG/30 ML SYRINGE IV SCH (12:22)
[2022-06-22] MEDS: INSULIN REGULAR 100 UNIT/ML SUBCUT SCH ×3 (12:24→19:59)
[2022-06-22] MEDS ORDERED: MAGNESIUM HYDROXIDE SUSP 30 ML UDCUP PO ONE (14:00)
[2022-06-22] MEDS: ALVIMOPAN 12 MG CAPSULE PO SCH (20:23)
[2022-06-23] MEDS ORDERED: ENOXAPARIN 40 MG/0.4 ML SYRINGE SUBCUT SCH (05:00)
[2022-06-23] MEDS: DEXTROSE 5% LACTATED RINGERS 1,000 ML IV SCH (06:03)
[2022-06-23 06:19] LABS: Calcium 8.5 MG/DL (8.5-10.1); Osmolality,Calculated 295.8 MOS/KG (273-304); Potassium 5.3 MMOL/L (3.5-5.1)
[2022-06-23 07:20] LABS: Basophils % 0.3 % (0.0-0.8); Eosinophils # 0.3 10*3/uL (0.0-0.87); Eosinophils % 2.1 % (0.00-10.9); Hematocrit 22.9 VOL% (42.0-52.0); Hemoglobin 7.3 GM/DL (14.0-18.0); Immature Granulocytes % 1.2 %; Immature Granulocytes Absolute 0.17 #; Lymphocytes # 0.8 10*3/uL (1.4-4.0); Lymphocytes % 5.5 % (21.2-54.2); Mean Corpuscular HGB Conc 31.9 GM/DL (32-36); Mean Platelet Volume 10.5 FL (9.6-12.0); Monocytes # 0.9 10*3/uL (0.11-0.8); Monocytes % 6.2 % (1.7-12.7); Neutrophils % 84.7 % (38.7-73.9); Platelet Count 347 T/CUMM (130-400); Red Blood Count 2.76 MC/CUMM (3.8-5.5); Red Cell Distribution Width 14.6 % (9.3-17.3); White Blood Count 14.43 T/CUMM (4-12)
[2022-06-23] MEDS: DOXAZOSIN 1 MG TABLET PO SCH (08:11)
[2022-06-23] MEDS: amLODIPine 10 MG TABLET PO SCH (08:11)
[2022-06-23] MEDS: ALVIMOPAN 12 MG CAPSULE PO SCH ×2 (08:11→21:34)
[2022-06-23] MEDS: INSULIN REGULAR 100 UNIT/ML SUBCUT SCH ×4 (08:12→21:35)
[2022-06-23] MEDS: PANTOPRAZOLE 40 MG VIAL IV SCH (08:12)
[2022-06-23] MEDS: HYDROmorphone PCA 30 MG/30 ML SYRINGE IV SCH (11:46)
[2022-06-23] MEDS: SODIUM CHLORIDE 0.9% 1,000 ML IV SCH (13:44)
[2022-06-23] MEDS: BISACODYL 5 MG TABLET PO SCH (13:44)
[2022-06-23] MEDS: GABAPENTIN 100 MG CAPSULE PO SCH ×2 (15:27→21:34)
[2022-06-24] MEDS: SODIUM CHLORIDE 0.9% 1,000 ML IV SCH (02:15)
[2022-06-24] MEDS ORDERED: hydrALAZINE 20 MG/1 ML VIAL IV ONE (04:42)
[2022-06-24] MEDS: ENOXAPARIN 30 MG/0.3 ML SYRINGE SUBCUT SCH (04:57)
[2022-06-24] MEDS: ASPIRIN EC 81 MG TABLET PO SCH (10:02)
[2022-06-24] MEDS: INSULIN REGULAR 100 UNIT/ML SUBCUT SCH ×4 (10:02→21:01)
[2022-06-24] MEDS: ALVIMOPAN 12 MG CAPSULE PO SCH ×2 (10:02→20:31)
[2022-06-24] MEDS: GABAPENTIN 100 MG CAPSULE PO SCH ×3 (10:02→21:01)
[2022-06-24] MEDS: amLODIPine 10 MG TABLET PO SCH (10:03)
[2022-06-24] MEDS: PHENAZOPYRIDINE 95 MG TABLET PO SCH ×2 (10:03→16:15)
[2022-06-24] MEDS: PANTOPRAZOLE 40 MG VIAL IV SCH (10:03)
[2022-06-24] MEDS: DOXAZOSIN 1 MG TABLET PO SCH (10:03)
[2022-06-24] MEDS: CLOPIDOGREL 75 MG TABLET PO SCH (10:03)
[2022-06-24] MEDS: BISACODYL 5 MG TABLET PO SCH (10:03)
[2022-06-24 10:55] LABS: RBC,Urine 5 /HPF (0-4); Sperm,Urine Occasional /HPF (Negative)
[2022-06-24 10:57] LABS: Bilirubin,Urine Negative (Negative); Blood, Urine Small mg/dL (Negative); Glucose,Urine (UA) 250 mg/dL (Negative); Ketones,Urine Negative (Negative); Nitrite,Urine Negative (Negative); Protein,Urine >=300 mg/dL (Negative); Urine Appearance Clear (Clear); Urine Color Yellow (Yellow); Urine pH 5.5 (4.5-8.0)
[2022-06-24 10:58] LABS: Urine Urobilinogen 0.2 eU/dL (<2.0)
[2022-06-24] MEDS ORDERED: HYDROmorphone 1 MG/1 ML SYRINGE IV PRN ×2 (11:21)
[2022-06-24] MEDS ORDERED: DOXAZOSIN 1 MG TABLET PO ONE (11:30)
[2022-06-25] MEDS: ENOXAPARIN 30 MG/0.3 ML SYRINGE SUBCUT SCH (04:54)
[2022-06-25 05:17] LABS: Calcium 8.5 MG/DL (8.5-10.1); Osmolality,Calculated 297.4 MOS/KG (273-304)
[2022-06-25] MEDS: DOXAZOSIN 4 MG TABLET PO SCH (09:25)
[2022-06-25] MEDS: ALVIMOPAN 12 MG CAPSULE PO SCH ×2 (09:25→20:26)
[2022-06-25] MEDS: CLOPIDOGREL 75 MG TABLET PO SCH (09:25)
[2022-06-25] MEDS: GABAPENTIN 100 MG CAPSULE PO SCH ×3 (09:25→21:01)
[2022-06-25] MEDS: PHENAZOPYRIDINE 95 MG TABLET PO SCH ×2 (09:25→17:23)
[2022-06-25] MEDS: ASPIRIN EC 81 MG TABLET PO SCH (09:25)
[2022-06-25] MEDS: amLODIPine 10 MG TABLET PO SCH (09:25)
[2022-06-25] MEDS: INSULIN REGULAR 100 UNIT/ML SUBCUT SCH ×4 (09:26→21:02)
[2022-06-25] MEDS: BISACODYL 5 MG TABLET PO SCH (09:30)
[2022-06-25] MEDS: PANTOPRAZOLE 40 MG VIAL IV SCH (09:30)
[2022-06-26] MEDS: ENOXAPARIN 30 MG/0.3 ML SYRINGE SUBCUT SCH (04:35)
[2022-06-26] MEDS ORDERED: hydrALAZINE 20 MG/1 ML VIAL IV ONE (04:59)
[2022-06-26] MEDS ORDERED: DAPAGLIFLOZIN 10 MG TABLET PO SCH (09:00)
[2022-06-26] MEDS: PHENAZOPYRIDINE 95 MG TABLET PO SCH ×2 (09:54→17:05)
[2022-06-26] MEDS: GABAPENTIN 100 MG CAPSULE PO SCH ×3 (09:55→21:24)
[2022-06-26] MEDS: INSULIN REGULAR 100 UNIT/ML SUBCUT SCH ×4 (09:55→21:23)
[2022-06-26] MEDS: CLOPIDOGREL 75 MG TABLET PO SCH (09:55)
[2022-06-26] MEDS: DOXAZOSIN 4 MG TABLET PO SCH (09:55)
[2022-06-26] MEDS: ASPIRIN EC 81 MG TABLET PO SCH (09:55)
[2022-06-26] MEDS: ISOSORBIDE DINITRATE 20 MG TABLET PO SCH ×3 (09:55→21:23)
[2022-06-26] MEDS: amLODIPine 10 MG TABLET PO SCH (09:55)
[2022-06-26] MEDS: PANTOPRAZOLE 40 MG VIAL IV SCH (09:55)
[2022-06-26] MEDS: BISACODYL 5 MG TABLET PO SCH (10:19)
[2022-06-26] MEDS: ALVIMOPAN 12 MG CAPSULE PO SCH ×2 (10:19→21:23)
[2022-06-26] MEDS ORDERED: INSULIN GLARGINE 100 UNIT/ML SUBCUT SCH (21:00)
[2022-06-27] MEDS: ENOXAPARIN 30 MG/0.3 ML SYRINGE SUBCUT SCH (05:48)
[2022-06-27 05:58] LABS: Basophils % 0.3 % (0.0-0.8); Eosinophils # 0.5 10*3/uL (0.0-0.87); Eosinophils % 4.4 % (0.00-10.9); Hematocrit 21.7 VOL% (42.0-52.0); Hemoglobin 6.6 GM/DL (14.0-18.0); Immature Granulocytes % 1.6 %; Immature Granulocytes Absolute 0.19 #; Lymphocytes # 1.3 10*3/uL (1.4-4.0); Lymphocytes % 10.8 % (21.2-54.2); Mean Corpuscular HGB Conc 30.4 GM/DL (32-36); Mean Corpuscular Volume 85.1 FL (87-102); Mean Platelet Volume 9.7 FL (9.6-12.0); Monocytes # 0.6 10*3/uL (0.11-0.8); Monocytes % 4.9 % (1.7-12.7); Platelet Count 360 T/CUMM (130-400); Red Blood Count 2.55 MC/CUMM (3.8-5.5); Red Cell Distribution Width 14.6 % (9.3-17.3); White Blood Count 11.54 T/CUMM (4-12)
[2022-06-27 06:17] LABS: Calcium 9.1 MG/DL (8.5-10.1); Osmolality,Calculated 297.3 MOS/KG (273-304); Potassium 4.3 MMOL/L (3.5-5.1)
[2022-06-27] MEDS: INSULIN REGULAR 100 UNIT/ML SUBCUT SCH ×2 (07:38→11:45)
[2022-06-27] MEDS: PHENAZOPYRIDINE 95 MG TABLET PO SCH (09:40)
[2022-06-27] MEDS: amLODIPine 10 MG TABLET PO SCH (09:40)
[2022-06-27] MEDS: ASPIRIN EC 81 MG TABLET PO SCH (09:40)
[2022-06-27] MEDS: CLOPIDOGREL 75 MG TABLET PO SCH (09:40)
[2022-06-27] MEDS: ALVIMOPAN 12 MG CAPSULE PO SCH (09:41)
[2022-06-27] MEDS: DOXAZOSIN 4 MG TABLET PO SCH (09:41)
[2022-06-27] MEDS: PANTOPRAZOLE 40 MG VIAL IV SCH (09:41)
[2022-06-27] MEDS: ISOSORBIDE DINITRATE 20 MG TABLET PO SCH (09:41)
[2022-06-27] MEDS: GABAPENTIN 100 MG CAPSULE PO SCH (09:41)
[2022-06-27] MEDS: BISACODYL 5 MG TABLET PO SCH (09:43)
[2022-06-27] MEDS ORDERED: SODIUM CHLORIDE 0.9% 1,000 ML IV PRN (11:12)
[2022-06-27 16:12] VITALS: BP 170/77
== END 2022-06-27 16:45 | disposition home health service (06) | DRG 240 ==
LOC: N.SDSINP 06:19 → N.3E 11:41
PROVIDERS: ADMIT Student in an Organized Health Care Education/Training Program; ATTEND Student in an Organized Health Care Education/Training Program